=== PATIENT | male | born 1980 | race Caucasian/White ===

== ENCOUNTER 2018-07-17 07:58 | Emergency (ER) | payer OTHER ==
[2018-07-17] MEDS ORDERED: Morphine INJ* 2 MG/ML 1 ML SYRINGE (TWO MG - NEW SYRINGE VERSION) IV ONE (08:43)
--- NOTE | 2018-07-17 08:52 | ED ---
Abdominal Pain/Male - HPI Summary HPI Summary: Patient is a 37-year-old male presenting to the ED with mid lower abdominal pain which is severe in nature, 9/10 constant throbbing over the past 2 days. He states this has been worsening. He endorses normal bowel movements. Denies any urinary symptoms. He states he is otherwise healthy and has no significant PMH. He endorses mild nausea, but denies any vomiting. Denies any diarrhea. Symptoms began 2 days ago, acute onset and has been constant since that time. He has never had anything like this before. Denies any abdominal surgeries. He takes no medications. - History of Current Complaint Chief Complaint: EDAbdPain Stated Complaint: ABD PAIN Time Seen by Provider: 07/17/18 08:33 Hx Obtained From: Patient Onset/Duration: Sudden Onset Timing: Constant Severity Initially: Severe Severity Currently: Severe Pain Intensity: 4 Pain Scale Used: 0-10 Numeric Location: Diffuse - lower abdomen with RLQ radiation Radiates: Yes Radiates to: RLQ Character: Sharp Aggravating Factor(s): Nothing Alleviating Factor(s): Nothing Associated Signs And Symptoms: Positive: Diaphoresis. Negative: Fever, Constipation, Blood in Stool, Urinary Symptoms, Decreased Appetite, Vomiting, Diarrhea, Penile Discharge - Risk Factors Testicular Torsion: Negative Cardiac Risk Factors: Negative - Allergies/Home Medications Allergies/Adverse Reactions: Allergies Allergy/AdvReac Type Severity Reaction Status Date / Time hydromorphone Allergy GI Upset Verified 07/17/18 08:11 Sulfa (Sulfonamide Allergy Unknown Verified 07/17/18 08:11 Antibiotics) Reaction Details PMH/Surg Hx/FS Hx/Imm Hx Previously Healthy: Yes - Immunization History Hx Pertussis Vaccination: No Immunizations Up to Date: Yes Infectious Disease History: No Infectious Disease History: Denies: Traveled Outside the [place] in Last 30 Days - Family History Known Family History: Positive: None - Social History Occupation: Employed Full-time Lives: With Family Alcohol Use: Occasionally Hx Substance Use: No Substance Use Type: Reports: Cocaine Hx Tobacco Use: No Smoking Status (MU): Never Smoked Tobacco Review of Systems Positive: Chills, Skin Diaphoresis. Negative: Fever, Fatigue Negative: Palpitations, Chest Pain Negative: Shortness Of Breath, Cough Positive: Abdominal Pain, Nausea. Negative: Vomiting, Diarrhea Genitourinary: Negative Positive: no symptoms reported, see HPI Negative: Arthralgia Negative: Rash, Bruising Negative: Weakness Psychological: Normal All Other Systems Reviewed And Are Negative: Yes Physical Exam Triage Information Reviewed: Yes Vital Signs On Initial Exam: Initial Vitals Temp Pulse Resp BP Pulse Ox 98.0 F 79 16 140/84 99 07/17/18 08:07 07/17/18 08:07 07/17/18 08:07 07/17/18 08:07 07/17/18 08:07 Vital Signs Reviewed: Yes Appearance: Positive: Well-Appearing, Well-Nourished Skin: Positive: Warm, Skin Color Reflects Adequate Perfusion Head/Face: Positive: Normal Head/Face Inspection Eyes: Positive: EOMI, JADIEL, Conjunctiva Clear Neck: Positive: Supple, No Lymphadenopathy Respiratory/Lung Sounds: Positive: Clear to Auscultation, Breath Sounds Present Cardiovascular: Positive: RRR, Pulses are Symmetrical in both Upper and Lower Extremities Abdomen Description: Positive: McBurney's Point Tenderness, Other: - tenderness to the lower mid quadrant with radiation to the RLQ. Negative: CVA Tenderness ( R), CVA Tenderness (L), Peritoneal Signs Bowel Sounds: Positive: Present Musculoskeletal: Positive: Normal, Strength/ROM Intact Neurological: Positive: Sensory/Motor Intact, Alert, Oriented to Person Place, Time, Speech Normal Psychiatric: Positive: Normal, Affect/Mood Appropriate Diagnostics - Vital Signs Vital Signs Temp Pulse Resp BP Pulse Ox 07/17/18 08:07 98.0 F 79 16 140/84 99 - Laboratory Result Diagrams: 07/17/18 09:08 07/17/18 09:08 Lab Statement: Any lab studies that have been ordered have been reviewed, and results considered in the medical decision making process. Re-Evaluation - Re-Evaluation First Eval Change: Unchanged - Patient declines any pain management Second Eval Change: Unchanged - On reevaluation, patient is accepting of 2 mg of morphine Abdominal Pain Fem Course/Dx - Course Course Of Treatment: During the course treatment, the patient is evaluated for mid lower abdominal pain which radiates into the bilateral lower quadrants. He states this is severe in nature. He has never had anything like this before. He declines pain medications on arrival including anti-emetics. He states he has been having sweats and chills, but denies any known fevers. Normal bowel movements of the past few days. He states he is otherwise healthy taking no medications. Physical examination, lungs CTA, moist mucous membranes, RRR, severe abdominal pain to light palpation to the mid lower quadrant, left lower quadrant as well as the RLQ. Positive psoas sign. Negative Amezquita's. Negative obturators. After physical examination, patient is willing to accept [address] abdomen and pelvis ordered: IMPRESSION: CT findings are consistent with a long segment colitis from the base of the cecum to the. sigmoid colon. Infection or inflammatory bowel disease are considered most likely. Patient feeling improved after morphine, however pain remains a 5/ 10. Declines further pain management. As he is hemodynamically stable, patient discharged home with metronidazole 500 mg 3 times a day as well as ciprofloxacin 500 mg BID. He will follow-up with GI if symptoms persist. - Diagnoses Differential Diagnosis/HQI/PQRI: Other - Ischemic colitis, infectious colitis, inflammatory bowel disease, appendicitis, viral syndrome Provider Diagnoses: Colitis Discharge - Sign-Out/Discharge Documenting (check all that apply): Patient Departure - Discharge Plan Condition: Stable Disposition: HOME Prescriptions: Ciprofloxacin TAB* [Cipro 500 MG TAB*] 500 mg PO BID #14 tab metroNIDAZOLE [Flagyl 500 MG TAB] 500 mg PO TID #1 tab MDD 3 Patient Education Materials: Colitis (ED) Referrals: No Primary Care Phys,NOPCP [Primary Care Provider] - Additional Instructions: Ciprofloxacin 500mg twice daily 7 days Metronidazole, 500 mg 3 times daily 7 days Do not drink alcohol while taking metronidazole! Do not drink alcohol until 3 days after cessation of metronidazole. - Billing Disposition and Condition Condition: STABLE Disposition: Home
[2018-07-17] MEDS ORDERED: Morphine INJ* 4 MG/ML 1 ML SYRINGE (NEW SYRINGE VERSION) ONE (08:57)
[2018-07-17] MEDS ORDERED: Morphine INJ* 4 MG/ML 1 ML SYRINGE (NEW SYRINGE VERSION) IV ONE (09:03)
[2018-07-17 09:17] LABS: ABS Basophils 0.1 10^3/ul (0-0.2); ABS Eosinophils 0.1 10^3/ul (0-0.6); ABS Lymphocytes 1.2 10^3/ul (1.0-4.8); ABS Monocytes 1.1 10^3/ul (0-0.8); ABS Neutrophils 8.7 10^3/ul (1.5-7.7); ABS Nucleated RBC 0 10^3/ul; Eosinophil % 1.1 % (0-6); Hematocrit 44 % (42-52); Hemoglobin 15.3 g/dl (14.0-18.0); Lymphocyte % 10.5 % (25-47); Mean Corpuscular HGB Conc 35 g/dl (31-36); Mean Corpuscular Hemoglobin 31 pg (27-31); Mean Corpuscular Volume 89 fL (80-94); Mean Platelet Volume 7.4 fL (7.4-10.4); Nucleated Red Blood Cells % 0.2; Platelet Count 214 10^3/ul (150-450); Red Blood Count 4.99 10^6/ul (4.00-5.40); Red Cell Distribution Width 13 % (10.5-15); White Blood Count 11.1 10^3/ul (3.5-10.8)
[2018-07-17] MEDS ORDERED: Iohexol 300* (CONTRAST) 10 ML SDV IV ONE (10:07)
[2018-07-17 10:53] LABS: Urine Appearance Clear; Urine Blood Negative (Negative); Urine Color Straw; Urine Ketones Negative (Negative); Urine Protein Negative (Negative); Urine Specific Gravity 1.004 (1.010-1.030); Urine Urobilinogen Negative (Negative)
--- NOTE | 2018-07-17 12:13 | RAD ---
CLINICAL HISTORY: 24 hours of right abdominal pain with reported difficulty urinating. COMPARISON: None TECHNIQUE: Contrast enhanced CT examination of the abdomen and pelvis from the lung bases through the initial tuberosities. The patient received 133 mL Omnipaque 300 intravenously prior to imaging.The patient received oral contrast as well prior to imaging. FINDINGS: VISUALIZED LUNG BASES: The visualized lung bases are grossly clear. There is no pleural effusion. ABDOMEN AND PELVIS: The liver, spleen, pancreas and adrenal glands are grossly normal in appearance. The gallbladder is normal. The kidneys are normal in appearance without focal mass, calcification or signs of hydronephrosis. The oral contrast has progressed as far as the rectum. The small and large bowel are not distended. The patient's normal appendix is identified in the right lower quadrant with contrast in the lumen measuring 5 mm in diameter (axial image 66) beginning at the base of the cecum and extending essentially throughout the entire length of the colon up to the sigmoid colon there is a mild degree of wall thickening measuring up to 6 mm in thickness. There is a very mild degree of infiltration of the surrounding pericolonic fat. There is no gross retroperitoneal or mesenteric lymphadenopathy. The pelvic viscera is normal in appearance. The abdominal aorta and iliac arteries are normal in course and diameter. There are no sinister bone lesions. IMPRESSION: CT findings are consistent with a long segment colitis from the base of the cecum to the sigmoid colon. Infection or inflammatory bowel disease are considered most likely.
[2018-07-17 12:34] VITALS: BP 128/66
== END 2018-07-17 12:33 | disposition home or self-care (01) ==
LOC: ED 07:58
DX: K52.9 Noninfective gastroenteritis and colitis, unspecified (principal)
CPT/HCPCS: 36415; 74177; 80053; 81003; 83605; 83690; 85025; 86140; 96374; 96375; 96376; 99282; 99283; J2270; Q9967